=== PATIENT | female | born 1960 | race Caucasian/White ===

== ENCOUNTER 2018-01-08 04:13 | Emergency (ER) | payer OTHER ==
[2018-01-08] MEDS ORDERED: Azithromycin 250 MG Tab PO ONE (04:35)
--- NOTE | 2018-01-08 04:37 | EDM.PDOC ---
ED HPI GENERAL MEDICAL PROBLEM - General Chief Complaint: ENT Problem Stated Complaint: SORE THROAT [id number] Time Seen by Provider: 01/08/18 04:34 Source of Information: Reports: Patient History Limitations: Reports: No Limitations - History of Present Illness INITIAL COMMENTS - FREE TEXT/NARRATIVE: woke up with sore throat then got hard to breath. feels better now. - Related Data Allergies Allergy/AdvReac Type Severity Reaction Status Date / Time Sulfa (Sulfonamide Allergy Cannot Verified 01/08/18 04:19 Antibiotics) Remember Social & Family History - Tobacco Use Smoking Status *Q: Never Smoker - Recreational Drug Use Recreational Drug Use: No ED ROS ENT - Review of Systems Review Of Systems: ROS reveals no pertinent complaints other than HPI. ED EXAM, ENT - Physical Exam Exam: See Below Exam Limited By: No Limitations General Appearance: Alert, WD/WN, No Apparent Distress Ears: Hearing Grossly Normal Mouth/Throat: Pharyngeal Erythema, Tonsillar Erythema Head: Atraumatic Neck: Non-Tender, Full Range of Motion Respiratory/Chest: No Respiratory Distress, Lungs Clear, Normal Breath Sounds Cardiovascular: Regular Rate, Rhythm GI/Abdominal: Soft, Non-Tender Neurological: Alert, Oriented, Normal Cognition, Normal Gait, No Motor/Sensory Deficits Psychiatric: Normal Affect, Normal Mood Skin: Warm, Dry, Normal Color Lymphatic: No Adenopathy Course - Orders/Labs/Meds Orders: Active Orders 24 hr Category Date Time Status CULTURE STREP A CONFIRMATION [RM] Stat Lab 01/08/18 03:17 Results STREP SCRN A RAPID W CULT CONF [] Stat Lab 01/08/18 03:17 Received - Re-Assessments/Exams Free Text/Narrative Re-Assessment/Exam: 01/08/18 04:36 results discussed with pt Departure - Departure Time of Disposition: 04:36 Disposition: Home, Self-Care 01 Condition: Good Clinical Impression: Tonsillitis - Discharge Information Instructions: Tonsillitis, [id number] Additional Instructions: 1) avoid solid foods next 48 hours 2)have popsicle, jello, juice 3) follow up at clinic rx given; z-sandy - My Orders Last 24 Hours: My Active Orders 01/08/18 03:17 CULTURE STREP A CONFIRMATION [RM] Stat STREP SCRN A RAPID W CULT CONF [] Stat - Assessment/Plan Last 24 Hours: My Active Orders 06/17/18 03:17 CULTURE STREP A CONFIRMATION [RM] Stat STREP SCRN A RAPID W CULT CONF [RM] Stat
== END 2018-01-08 04:44 | disposition home or self-care (01) ==
LOC: DL.ED 04:13
DX: J03.90 Acute tonsillitis, unspecified (principal); Z88.2 Allergy status to sulfonamides
CPT/HCPCS: 87081; 87430; 99283; A9270

== ENCOUNTER 2018-01-08 22:44 | Emergency (ER) | payer OTHER ==
[2018-01-09 00:03] LABS: CHLORIDE,CL 104 mmol/L (101-111); SODIUM,NA 139 mmol/L (135-145)
--- NOTE | 2018-01-09 01:23 | EDM.PDOC ---
ED HPI GENERAL MEDICAL PROBLEM - General Chief Complaint: General Stated Complaint: DOESNT FEEL RIGHT [phone] Time Seen by Provider: 01/09/18 01:20 Source of Information: Reports: Patient History Limitations: Reports: No Limitations - History of Present Illness INITIAL COMMENTS - FREE TEXT/NARRATIVE: still not totally better. Upper Chest Pain Score (Numeric/FACES): 4 - Related Data Allergies Allergy/AdvReac Type Severity Reaction Status Date / Time Sulfa (Sulfonamide Allergy Cannot Verified 01/08/18 23:01 Antibiotics) Remember Home Meds: Home Meds Benzonatate [Tessalon Perle] 100 mg PO Q6HR PRN 01/08/18 [History] Diazepam [Valium] 5 mg PO BEDTIME PRN 01/08/18 [History] FLUoxetine HCl [Prozac] 20 mg PO DAILY 01/08/18 [History] Levothyroxine 200 mcg PO ACBREAKFAST 01/08/18 [History] Past Medical History - Past Health History Medical/Surgical History: Denies Medical/Surgical History Psychiatric History: Reports: Depression Endocrine/Metabolic History: Reports: Hypothyroidism Social & Family History - Family History Family Medical History: Noncontributory - Tobacco Use Smoking Status *Q: Never Smoker Second Hand Smoke Exposure: No - Caffeine Use Caffeine Use: Reports: Coffee - Recreational Drug Use Recreational Drug Use: No ED ROS GENERAL - Review of Systems Review Of Systems: ROS reveals no pertinent complaints other than HPI. ED EXAM, GENERAL - Physical Exam Exam: See Below Exam Limited By: No Limitations General Appearance: Alert, WD/WN, Anxious, Mild Distress Ears: Hearing Grossly Normal Throat/Mouth: Normal Inspection, Normal Voice, No Airway Compromise Head: Atraumatic Neck: Non-Tender, Full Range of Motion Respiratory/Chest: No Respiratory Distress, Lungs Clear, Normal Breath Sounds Cardiovascular: Regular Rate, Rhythm GI/Abdominal: Soft, Non-Tender Neurological: Alert, Oriented, Normal Cognition, Normal Gait, No Motor/Sensory Deficits Psychiatric: Anxious Skin Exam: Warm, Dry, Normal Color Lymphatic: No Adenopathy Course - Vital Signs Last Recorded V/S: Last Vital Signs Temp 36.6 C 01/08/18 23:09 Pulse 94 01/08/18 23:09 Resp 28 H 01/08/18 23:09 BP 118/65 01/08/18 23:09 Pulse Ox 96 01/08/18 23:09 - Orders/Labs/Meds Labs: Laboratory Tests 01/08/18 01/08/18 01/08/18 Range/Units 23:35 23:35 23:35 WBC 8.5 (5.0-10.0) 10^3/uL RBC 3.92 L (4.2-5.4) 10^6/uL Hgb 12.1 (12.0-16.0) g/dL Hct 36.7 L (37.0-47.0) % MCV 93.6 (80-100) fL MCH 30.9 (27.0-34.0) pg MCHC 33.0 (33.0-35.0) g/dL Plt Count 205 (150-450) 10^3/uL Neut % (Auto) 73.5 (42.2-75.2) % Lymph % (Auto) 14.0 L (20.5-50.1) % [place] % (Auto) 8.8 H (2-8) % Eos % (Auto) 3.5 H (1.0-3.0) % Baso % (Auto) 0.2 (0.0-1.0) % Sodium 139 (135-145) mmol/L Potassium 3.3 L (3.6-5.0) mmol/L Chloride 104 (101-111) mmol/L Carbon Dioxide 29.0 (21.0-31.0) mmol/L Anion Gap 9.3 BUN 10 (7-18) mg/dL Creatinine 0.9 (0.6-1.3) mg/dL Est Cr Clr Drug Dosing 60.35 mL/min Estimated GFR (MDRD) > 60 BUN/Creatinine Ratio 11.11 Glucose 109 H (74-105) mg/dL Calcium 8.7 (8.4-10.2) mg/dl Total Bilirubin 0.8 (0.2-1.0) mg/dL AST 23 (10-42) IU/L ALT 22 (10-60) IU/L Alkaline Phosphatase 105 (42-121) IU/L Troponin I < 0.02 (0.00-0.02) ng/ml B-Natriuretic Peptide 34 (0-100) pg/ml Total Protein 7.1 (6.7-8.2) g/dl Albumin 3.5 (3.2-5.5) g/dl Globulin 3.6 Albumin/Globulin Ratio 0.97 - Re-Assessments/Exams Free Text/Narrative Re-Assessment/Exam: 01/09/18 01:22 results discussed with pt who was sleep but arousable no c/o no distress. Departure - Departure Time of Disposition: 01:23 Disposition: Home, Self-Care 01 Condition: Good Clinical Impression: Tonsillitis - Discharge Information Instructions: Tonsillitis, [id number] Additional Instructions: 1) rest 2) continue meds 3) drink lots of liquids 4) follow up at clinic
== END 2018-01-09 01:40 | disposition home or self-care (01) ==
LOC: DL.ED 22:44
DX: J03.90 Acute tonsillitis, unspecified (principal); E03.9 Hypothyroidism, unspecified; Z88.2 Allergy status to sulfonamides; Z79.899 Other long term (current) drug therapy
CPT/HCPCS: 36415; 71045; 80053; 83880; 84484; 85025; 99283

== ENCOUNTER 2018-01-15 18:53 | Emergency (ER) | payer OTHER ==
--- NOTE | 2018-01-15 19:59 | EDM.PDOC ---
ED HPI GENERAL MEDICAL PROBLEM - General Chief Complaint: Respiratory Problem Stated Complaint: hard time breathing [phone] Time Seen by Provider: 01/15/18 19:57 Source of Information: Reports: Patient History Limitations: Reports: No Limitations - History of Present Illness INITIAL COMMENTS - FREE TEXT/NARRATIVE: states she's actually getting better but having having problem sleeping. medrol dospak was making her much better but she misplaced it. states been under lot of stress and it's worrying her family. advised pt to see counseling but she doesn't think her problem is that serious just needs something to help her sleep. advised pt the ER has limitations in Tx insomnia. also needs left eye examined since she accidentally inserted her contact lens wrong. - Related Data Allergies Allergy/AdvReac Type Severity Reaction Status Date / Time Sulfa (Sulfonamide Allergy Cannot Verified 01/08/18 23:01 Antibiotics) Remember Home Meds: Home Meds Benzonatate [Tessalon Perle] 100 mg PO Q6HR PRN 01/08/18 [History] Diazepam [Valium] 5 mg PO BEDTIME PRN 01/08/18 [History] FLUoxetine HCl [Prozac] 20 mg PO DAILY 01/08/18 [History] Levothyroxine 200 mcg PO ACBREAKFAST 01/08/18 [History] Past Medical History - Past Health History Medical/Surgical History: Denies Medical/Surgical History Psychiatric History: Reports: Depression Endocrine/Metabolic History: Reports: Hypothyroidism Social & Family History - Family History Family Medical History: Noncontributory - Tobacco Use Smoking Status *Q: Unknown Ever Smoked - Caffeine Use Caffeine Use: Reports: Coffee - Recreational Drug Use Recreational Drug Use: No ED ROS GENERAL - Review of Systems Review Of Systems: ROS reveals no pertinent complaints other than HPI. ED EXAM, GENERAL - Physical Exam Exam: See Below Exam Limited By: No Limitations General Appearance: Alert, WD/WN, No Apparent Distress, Other (talkative, little distraught) Eye Exam: Left Eye: Conjunctival Injection, Bilateral Eye: PERRL (pupils ER @ 4mm) Ears: Hearing Grossly Normal Throat/Mouth: Normal Voice, No Airway Compromise Head: Atraumatic Neck: Non-Tender, Full Range of Motion Respiratory/Chest: No Respiratory Distress, Lungs Clear, Normal Breath Sounds Cardiovascular: Regular Rate, Rhythm GI/Abdominal: Soft, Non-Tender Neurological: Alert, Oriented, Normal Cognition, Normal Gait, No Motor/Sensory Deficits Psychiatric: Flat Affect Skin Exam: Warm, Dry, Normal Color Lymphatic: No Adenopathy Course - Vital Signs Last Recorded V/S: Last Vital Signs Temp 36.9 C 01/15/18 19:03 Pulse 85 01/15/18 19:03 Resp 18 01/15/18 19:03 BP 147/94 H 01/15/18 19:03 Pulse Ox 100 01/15/18 19:03 - Orders/Labs/Meds Meds: Medications Discontinued Medications Generic Name Dose Route Start Last Admin Trade Name [place] PRN Reason Stop Dose Admin Fluorescein Sodium 1 mg 01/15/18 20:04 01/15/18 20:11 Ful-Eleni EYELF 01/15/18 20:05 Not Given ONETIME ONE Tetracaine HCl 2 ml 01/15/18 20:04 01/15/18 20:11 Tetracaine 0.5% [place] EYELF 01/15/18 20:05 Not Given ASDIRECTED ONE Departure - Departure Time of Disposition: 20:35 Disposition: Left Without Being Seen 07 Condition: Undetermined Clinical Impression: Insomnia disorder Qualifiers: Insomnia type: psychophysiologic Qualified Code(s): F51.04 - Psychophysiologic insomnia - Discharge Information Referrals: PCP,None [Primary Care Provider] - Forms: ED Department Discharge
[2018-01-15] MEDS: Tetracaine HCl/PF 0.5% 4 ML Bottle EYELF ONE ×2 (20:11)
[2018-01-15] MEDS: Fluorescein 1 MG Ophth Strip EYELF ONE ×2 (20:11→20:12)
== END 2018-01-15 20:36 | disposition left against medical advice (07) ==
LOC: DL.ED 18:53
DX: Z53.21 Procedure and treatment not carried out due to patient leaving prior to being seen by health care provider (principal)
CPT/HCPCS: 99283; A9270-GY

== ENCOUNTER 2019-04-03 07:55 | Day surgery (SDC) | payer MEDICAID ==
[~2019-04-03 07:55] MED LIST: Benzocaine 20% Topical Spray UD MUCMEM ONE; Dextrose 5%-0.45% NaCl 1,000 ML IV SCH; Midazolam 1 MG/ML 2 ML SDV ONE; fentaNYL 100 MCG/2 ML SDV ONE
[2019-04-03] MEDS ORDERED: fentaNYL 100 MCG/2 ML SDV IV ONE ×3 (07:56→08:58)
[2019-04-03] MEDS ORDERED: Midazolam 1 MG/ML 2 ML SDV IV ONE ×5 (07:56→09:03)
[2019-04-03] MEDS ORDERED: Benzocaine 20% Topical Spray UD MUCMEM ONE (08:49)
--- NOTE | 2019-04-03 10:58 | OR ---
DATE: 04/03/2019 PREOPERATIVE DIAGNOSIS: Screening colonoscopy. POSTOPERATIVE DIAGNOSIS: Screening colonoscopy. PROCEDURE: Total colonoscopy. ANESTHESIA: Conscious sedation with IV Versed and fentanyl. SPECIMEN: None. OPERATIVE FINDINGS: Some occasional small left-sided colon diverticula, otherwise normal. RECOMMENDATION: Followup colonoscopy for screening in 10 years. INDICATION FOR PROCEDURE: This 59-year-old female presents for screening colonoscopy. She did have a father who of colon cancer; however, he was quite old and fits into the normal population. PROCEDURE IN DETAIL: After adequate preparation, a colonoscope was inserted into the rectum. This was easily passed all the way to the cecum. Confirmation of the cecum was made by visualization of the ileocecal valve, palpation in the right lower quadrant, and a light shining through the right lower quadrant. On withdrawal of the scope, the bowel prep was good and an adequate examination of the colon was accomplished. The only abnormality noted were a few small diverticula on the left side of the colon. These seem to not be significant. Anal and rectal examinations are also normal. Air was suctioned from the colon and the scope removed. [facility] /[id number]
--- NOTE | 2019-04-03 14:30 | OR ---
DATE: 04/03/2019 PREOPERATIVE DIAGNOSES: Gastroesophageal reflux disease and some dysphagia. POSTOPERATIVE DIAGNOSES: Gastroesophageal reflux disease and some dysphagia. PROCEDURES: Esophagogastroduodenoscopy with photograph of distal esophagus and biopsy of distal esophagus. ANESTHESIA: Conscious sedation with IV Versed and fentanyl. SPECIMEN: Distal esophageal biopsy. OPERATIVE FINDINGS: 2 cm hiatal hernia, and minimal to moderate distal esophagitis. RECOMMENDATION: This patient is morbidly obese. I would expect her to have some sort of reflux. She only takes Tums when she feels like she has heartburn. Her main complaint is some swallowing difficulty, mostly with solid foods. INDICATION FOR PROCEDURE: This 59-year-old female has some dysphagia and gastroesophageal reflux disease symptoms. PROCEDURE IN DETAIL: After adequate preparation, gastroscope was inserted into the esophagus. This was passed down to the distal esophagus. She does have some moderate streaks of distal esophagitis in all quadrants of the distal esophagus. She also has by visualization a 2 cm hiatal hernia. The scope was advanced into the stomach. Both forward and retroflexed views were done and are normal. The scope was advanced through the pylorus and the first and second parts of the duodenum were also normal. Gastric anatomy seemed to be normal. On withdrawal of the scope, photographs of the distal esophagus were taken as well as a biopsy of the distal esophagus. Air was suctioned from the stomach, and the scope removed. [facility] /[id number] cc: Bonnie Prakash MD [facility]
== END 2019-04-03 11:20 | disposition home or self-care (01) ==
LOC: DL.ENDO 07:55
PROVIDERS: ATTEND Surgery
DX: Z12.11 Encounter for screening for malignant neoplasm of colon (principal); K21.0 Gastro-esophageal reflux disease with esophagitis; K57.30 Diverticulosis of large intestine without perforation or abscess without bleeding; K44.9 Diaphragmatic hernia without obstruction or gangrene; Z80.0 Family history of malignant neoplasm of digestive organs; Z79.899 Other long term (current) drug therapy
CPT/HCPCS: 43239; A9270-GY; G0121; J2250; J3010; J7042

== ENCOUNTER 2020-11-21 19:44 | Emergency (ER) | payer OTHER ==
[2020-11-21] MEDS ORDERED: Propofol 200 MG/20 ML SDV IV ONE (19:45)
[2020-11-21] MEDS ORDERED: fentaNYL 100 MCG/2 ML SDV IVPUSH ONE (21:07)
--- NOTE | 2020-11-21 21:22 | CR ---
PROCEDURE INFORMATION: Exam: XR Right Shoulder Exam date and time: 11/21/2020 8:46 PM Age: 60 years old Clinical indication: Other: Fall; Additional info: Pain TECHNIQUE: Imaging protocol: XR Right shoulder. Views: 2 or more views. COMPARISON: No relevant prior studies available. FINDINGS: Bones/joints: There is anterior dislocation of the right humeral head. There is no evidence of acute fracture. Soft tissues: No soft tissue swelling is identified. IMPRESSION: Right glenohumeral dislocation.
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
[2020-11-21] MEDS ORDERED: Sodium Chloride 0.9% 500 ML IV SCH (21:45)
--- NOTE | 2020-11-21 22:07 | CR ---
PROCEDURE INFORMATION: Exam: XR Right Shoulder Exam date and time: 11/21/2020 9:31 PM Age: 60 years old Clinical indication: Other: Post reduction TECHNIQUE: Imaging protocol: XR Right shoulder. Views: 1 view. COMPARISON: CR Shoulder Comp Rt 11/21/2020 8:46 PM FINDINGS: Bones/joints: This single frontal view shows the humeral head 2 the positioned in the expected location. No fracture is identified. Soft tissues: No soft tissue swelling is identified. IMPRESSION: Anatomic alignment following reduction of the right shoulder dislocation.
== END 2020-11-21 22:20 | disposition home or self-care (01) ==
LOC: DL.ED 19:44
DX: S43.014A Anterior dislocation of right humerus, initial encounter (principal); E05.90 Thyrotoxicosis, unspecified without thyrotoxic crisis or storm; Z88.2 Allergy status to sulfonamides; Z88.8 Allergy status to other drugs, medicaments and biological substances; Z77.22 Contact with and (suspected) exposure to environmental tobacco smoke (acute) (chronic); W10.9XXA Fall (on) (from) unspecified stairs and steps, initial encounter
CPT/HCPCS: 23650; 73020; 73030; 96374; 99283; J3010; J7040; 01620; 99284; J2704

== ENCOUNTER 2023-10-17 19:44 | Emergency (ER) | payer OTHER ==
[2023-10-17] MEDS ORDERED: Phenylephrine 0.5% Nasal Spray 15 ML Bot NASBOTH ONE (20:18)
[2023-10-17] MEDS ORDERED: Tranexamic Acid 1,000 MG in Sodium Chloride 0.9% 100 ML IV ONE (20:53)
== END 2023-10-17 21:26 | disposition home or self-care (01) ==
LOC: DL.ED 19:44
DX: R04.0 Epistaxis (principal); Z88.2 Allergy status to sulfonamides; Z88.8 Allergy status to other drugs, medicaments and biological substances; Z86.19 Personal history of other infectious and parasitic diseases
CPT/HCPCS: 99282; 99283; A9270-GY